=== PATIENT | male | born 1955 | race African-American/Black ===

== ENCOUNTER 2019-11-02 01:06 | Emergency (ER) | payer MEDICAID ==
[~2019-11-02] VITALS: Ht 182.9 cm; Wt 72.5 kg
[~2019-11-02 01:06] MED LIST: MIRT30TA3 PO; QUET100T4 PO; TRAZ-175 PO
[2019-11-02 01:10] VITALS: BP 127/81
--- NOTE | 2019-11-02 01:27 | NUR ---
assessment made. chart up for MD to see.
[2019-11-02] MEDS ORDERED: MORPHINE SULFATE 4 MG/ML, 1ML IVPush ONE (01:30)
[2019-11-02] MEDS ORDERED: SODIUM CHLORIDE FLUSH 10ML SYR IVF ONE (01:30)
[2019-11-02] MEDS ORDERED: CEFAZOLIN PMX 1GM/50ML 50 ML IV ONE (01:30)
[2019-11-02] MEDS ORDERED: ONDANSETRON 2MG/ML, 2ML IVPush ONE (01:30)
[2019-11-02] MEDS ORDERED: VANCOMYCIN PER PHARMACY MC PRN (01:30)
[2019-11-02] MEDS ORDERED: CEFAZOLIN 1,000 MG ONE (01:46)
[2019-11-02] MEDS ORDERED: ONDANSETRON 2MG/ML, 2ML ONE (01:46)
[2019-11-02] MEDS ORDERED: MORPHINE SULFATE 4 MG/ML, 1ML ONE (01:46)
[2019-11-02 01:51] LABS: BASOPHILS # (AUTO) 0.03 x10^3/uL (0-0.1); BASOPHILS % (AUTO) 0 % (0-1); EOSINOPHILS # (AUTO) 0.22 x10^3/uL (0-0.4); EOSINOPHILS % (AUTO) 3 % (1-7); LYMPHOCYTES # (AUTO) 1.83 x10^3/uL (1-3.4); LYMPHOCYTES % (AUTO) 24 % (22-44); MD NO; MEAN CORPUSCULAR HEMOGLOBIN 28.2 pg (27.5-34.5); MEAN CORPUSCULAR HGB CONC 32.7 g/dL (33.2-36.2); MEAN CORPUSCULAR VOLUME 86.2 fL (81-97); MEAN PLATELET VOLUME 6.8 fL (7.4-10.4); MONOCYTES # (AUTO) 0.63 x10^3/uL (0.2-0.8); MONOCYTES % (AUTO) 8 % (2-9); NEUTROPHILS # (AUTO) 5.01 x10^3/uL (1.8-6.8); NEUTROPHILS % (AUTO) 65 % (42-75); PLATELET COUNT 433 x10^3/uL (130-400); RED BLOOD COUNT 4.97 x10^6/uL (4.38-5.82); RED CELL DISTRIBUTION WIDTH 15.5 % (9.4-14.8)
[2019-11-02 01:59] LABS: ALBUMIN 3.1 g/dL (3.4-5.0); ANION GAP 7 mmol/L (5-15); CALCIUM 8.5 mg/dL (8.5-10.1); CHLORIDE 109 mmol/L (98-107); CREATININE 0.97 mg/dL (0.7-1.3)
[2019-11-02] MEDS ORDERED: VANCOMYCIN 1,400 MG in SODIUM CHLORIDE 0.9% 250 ML IV ONE (02:00)
[2019-11-02] MEDS ORDERED: CEFAZOLIN PMX 1GM/50ML 50 ML ONE (02:03)
== END 2019-11-02 04:16 | disposition home or self-care (01) ==
LOC: ED 02:40
DX: L03.115 Cellulitis of right lower limb (principal); M79.661 Pain in right lower leg; F17.200 Nicotine dependence, unspecified, uncomplicated; Z72.9 Problem related to lifestyle, unspecified
CPT/HCPCS: 36415; 73590; 80048; 82040; 85025; 96365; 96375; 99284; J0690; J2270; J2405; J3370; J7050

== ENCOUNTER 2019-11-08 17:33 | Emergency (ER) | payer MEDICAID ==
[~2019-11-08] VITALS: Ht 182.9 cm; Wt 74.3 kg
[2019-11-08 17:35] VITALS: BP 143/100
--- NOTE | 2019-11-08 18:41 | NUR ---
PATIENT STATES HE WAS SEEN ABOUT A WEEK AGO AND WAS DIAGNOSED WITH A STAPH INFECTION/CELLULITIS AND DISCHARGED. UNABLE TO FURNITURE ASSOCIATE ABX PRESCRIPTION. MULTIPLE CRUSTED LESIONS NOTED TO RIGHT CALF/FRIAS
[2019-11-08 19:24] LABS: BASOPHILS # (AUTO) 0.08 x10^3/uL (0-0.1); BASOPHILS % (AUTO) 1 % (0-1); EOSINOPHILS # (AUTO) 0.15 x10^3/uL (0-0.4); EOSINOPHILS % (AUTO) 2 % (1-7); LYMPHOCYTES # (AUTO) 1.91 x10^3/uL (1-3.4); LYMPHOCYTES % (AUTO) 30 % (22-44); MD NO; MEAN CORPUSCULAR HEMOGLOBIN 27.9 pg (27.5-34.5); MEAN CORPUSCULAR HGB CONC 32.3 g/dL (33.2-36.2); MEAN CORPUSCULAR VOLUME 86.4 fL (81-97); MEAN PLATELET VOLUME 6.2 fL (7.4-10.4); MONOCYTES # (AUTO) 0.66 x10^3/uL (0.2-0.8); MONOCYTES % (AUTO) 10 % (2-9); NEUTROPHILS # (AUTO) 3.58 x10^3/uL (1.8-6.8); NEUTROPHILS % (AUTO) 56 % (42-75); PLATELET COUNT 421 x10^3/uL (130-400); RED BLOOD COUNT 4.82 x10^6/uL (4.38-5.82); RED CELL DISTRIBUTION WIDTH 15.7 % (9.4-14.8)
[2019-11-08 19:35] LABS: ALBUMIN 3.1 g/dL (3.4-5.0); ANION GAP 3 mmol/L (5-15); CALCIUM 8.6 mg/dL (8.5-10.1); CHLORIDE 106 mmol/L (98-107); CREATININE 0.93 mg/dL (0.7-1.3)
[2019-11-08] MEDS ORDERED: CEPHALEXIN 500 MG CAPSULE PO ONE (20:30)
[2019-11-08] MEDS ORDERED: SULFAMETH./TRIMETHOPRIM DS 800MG/160MG TABLET PO ONE (20:30)
[2019-11-08] MEDS ORDERED: CEPHALEXIN 500 MG CAPSULE ONE (20:37)
[2019-11-08] MEDS ORDERED: SULFAMETH./TRIMETHOPRIM DS 800MG/160MG TABLET ONE (20:38)
--- NOTE | 2019-11-08 21:24 | NUR ---
UPON CLEANING ROOM, PATIENT HAD LEFT DISCHARGE PAPERWORK IN ROOM. LEFT AT DISCHARGE DESK IN CASE PATIENT COMES BACK FOR PRESCRIPTION SHEET.
== END 2019-11-08 21:09 | disposition home or self-care (01) ==
LOC: ED 20:31
DX: L03.115 Cellulitis of right lower limb (principal); E11.9 Type 2 diabetes mellitus without complications; F17.210 Nicotine dependence, cigarettes, uncomplicated
CPT/HCPCS: 36415; 80048; 82040; 85025; 99285; 99406

== ENCOUNTER 2019-11-22 02:23 | Emergency (ER) | payer MEDICAID ==
[~2019-11-22] VITALS: Ht 182.9 cm; Wt 73.3 kg
[2019-11-22] MEDS ORDERED: SULFAMETH./TRIMETHOPRIM DS 800MG/160MG TABLET PO ONE (03:00)
[2019-11-22] MEDS ORDERED: IBUPROFEN 200 MG TABLET PO ONE (03:00)
[2019-11-22] MEDS ORDERED: CEPHALEXIN 500 MG CAPSULE PO ONE (03:00)
[2019-11-22] MEDS ORDERED: CEPHALEXIN 500 MG CAPSULE ONE (03:03)
[2019-11-22] MEDS ORDERED: SULFAMETH./TRIMETHOPRIM DS 800MG/160MG TABLET ONE (03:03)
[2019-11-22] MEDS ORDERED: IBUPROFEN 600 MG TABLET ONE (03:03)
[2019-11-22 03:15] VITALS: BP 122/83
--- NOTE | 2019-11-22 03:15 | NUR ---
Pt provided with crutches and taxi voucher
== END 2019-11-22 03:21 | disposition home or self-care (01) ==
LOC: ED 03:02
DX: L03.115 Cellulitis of right lower limb (principal); E11.9 Type 2 diabetes mellitus without complications
CPT/HCPCS: 99284

== ENCOUNTER 2020-04-25 07:08 | Emergency (ER) | payer MEDICARE, MEDICAID ==
[~2020-04-25] VITALS: Ht 180.3 cm; Wt 75.2 kg
[2020-04-25] MEDS ORDERED: OMNIPAQUE 350 MG/ML, 100ML BOTTLE ONE (07:34)
[2020-04-25 07:43] LABS: BASOPHILS % (AUTO) 1 % (0-1); EOSINOPHILS % (AUTO) 1 % (1-7); LYMPHOCYTES % (AUTO) 19 % (22-44); MEAN CORPUSCULAR HEMOGLOBIN 28.6 pg (27.5-34.5); MEAN CORPUSCULAR HGB CONC 33.1 g/dL (33.2-36.2); MEAN PLATELET VOLUME 6.7 fL (7.4-10.4); MONOCYTES % (AUTO) 8 % (2-9); NEUTROPHILS % (AUTO) 71 % (42-75); PLATELET COUNT 310 x10^3/uL (130-400); RED BLOOD COUNT 5.05 x10^6/uL (4.38-5.82); RED CELL DISTRIBUTION WIDTH 14.4 % (9.4-14.8)
[2020-04-25 07:44] LABS: MD NO
[2020-04-25 07:55] LABS: TROPONIN I < 0.015 ng/mL (0.000-0.045)
[2020-04-25 08:20] LABS: INTERNATIONAL NORMALIZED RATIO 1.12 (0.93-1.1); PROTHROMBIN TIME 11.9 Seconds (9.6-11.5)
--- NOTE | 2020-04-25 08:21 | NUR ---
PT BIB EMS FOR R-SIDED ARM AND LEG WEAKNESS, R FACIAL DROOPING AND SLURRED SPEECH. PT WAS LAST KNOWN NORMAL AT 3AM REPORTED BY DAVID, PER EMS. EMS REPORTED THAT JESSIKAATE HEARD PT MOANING AT AROUND 630 THIS AM AND WENT TO CHECK ON HIM, AT WHICH TIME THEY NOTICED THE R-SIDED WEAKNESS AND TROUBLE SPEAKING, AND CALLED 911. PT WAS EXAMINED IMMEDIATELY BY DR. GONZALEZ AND TAKEN TO CT ON EMS GURNEY. CTs WERE PERFORMED AND PATIENT RETURNED TO TRAUMA 4. PT HAS HAD TROUBLE HANDLING SECRETIONS. SUCTIONED PATIENT MULTIPLE TIMES TO RETRIEVE SECRETIONS. PT HAS IMPAIRED GAG REFLEX. DR. GONZALEZ NOTIFIED. PATIENT WAS SEEN VIA TELEMEDICINE BY NEUROLOGIST, DR. ERIC, WHO STATES THAT PATIENT IS NOT A CANDIDATE FOR TPA DUE TO TIME FRAME OF BEING OUTSIDE THE TREATMENT WINDOW BASED ON LAST KNOWN NORMAL. PT IS RESTING. ASSISTED PATIENT WITH USING THE URINAL. PT IS CONTINANT OF URINE. WARM BLANKET PROVIDED. CHEST XRAY DONE. URINE COLLECTED AND SENT TO LAB.
[2020-04-25] MEDS ORDERED: ONDANSETRON 2MG/ML, 2ML IVPush ONE (08:30)
[2020-04-25] MEDS ORDERED: ONDANSETRON 2MG/ML, 2ML ONE (08:31)
[2020-04-25 08:38] LABS: AMPHETAMINE SCREEN, URINE Negative (Negative); BARBITURATE SCREEN, URINE Negative (Negative); BENZODIAZEPINE SCREEN, URINE Negative (Negative); CANNABINOID SCREEN, URINE Negative (Negative); COCAINE SCREEN, URINE Negative (Negative); METHADONE SCREEN, URINE Negative (Negative); OPIATE SCREEN, URINE Negative (Negative)
--- NOTE | 2020-04-25 08:39 | NUR ---
PT BECAME NAUSEATED AND BEGAN VOMITING. DR. GONZALEZ NOTIFIED. ANGELIA ORDERED AND GIVEN. INSTRUCTED PATIENT ON USE OF YANKAUER WAND FOR SELF-SUCTIONING TO HANDLE ORAL SECRETIONS AND PHLEGM, PATIENT HAS A THICK SPUTUM.
[2020-04-25] MEDS ORDERED: METF500T17 PO (08:54)
[2020-04-25] MEDS ORDERED: METF10007 PO (08:55)
--- NOTE | 2020-04-25 08:55 | NUR ---
ATTEMPTED TO CALL [facility] TO VERIFY HOME MEDS BUT THEY ARE CLOSED AT THIS TIME.
[2020-04-25] MEDS ORDERED: ACETAMINOPHEN 650 MG SUPP ONE (09:06)
[2020-04-25] MEDS ORDERED: ACETAMINOPHEN 650 MG SUPP PR ONE (09:30)
--- NOTE | 2020-04-25 09:43 | NUR ---
PT TO MRI WITH THIS RN ON MD PSYCHIATRY AT THIS TIME.
[2020-04-25] MEDS ORDERED: ASPIRIN 600 MG SUPP PR ONE (10:00)
--- NOTE | 2020-04-25 10:11 | NUR ---
PATIENT IS BACK FROM MRI AND TOLERATED WELL. PT RESTING WITH NO COMPLAINTS. PT REMAINS IN A NORMAL SINUS RHYTHM.
--- NOTE | 2020-04-25 10:22 | NUR ---
SPO2 DECREASED TO 86% AFTER PATIENT HAD FALLEN ASLEEP. OXYGEN APPLIED VIA NASAL CANNULA AT 1 LPM. SPO2=96% NOW.
[2020-04-25 10:40] VITALS: BP 156/87
--- NOTE | 2020-04-25 10:41 | NUR ---
DR. GONZALEZ AT BEDSIDE DISCUSSING TRANSFERRING HIM TO [facility] FOR PROCEDURE TO REPAIR ISCHEMIA. PT AGREES. PT RESTING WITH NO COMPLAINTS. VS UPDATED AND STABLE.
--- NOTE | 2020-04-25 10:55 | NUR ---
SBAR TELEPHONE HAND-OFF REPORT GIVEN TO DIRECTOR EXTERNAL COMMUNICATIONS LINSEY AT [facility].
--- NOTE | 2020-04-25 11:01 | NUR ---
RAPID COVID SWAB COLLECTED AND WALKED TO LAB. REQUESTED PLANT MAINTENANCE MANAGER TO RUN STAT PATIENT HAS A STROKE.
--- NOTE | 2020-04-25 11:29 | NUR ---
PT TO [facility] AT THIS TIME.
== END 2020-04-25 11:32 | disposition short-term general hospital (02) ==
LOC: ED 08:07
DX: I65.01 Occlusion and stenosis of right vertebral artery (principal); I63.9 Cerebral infarction, unspecified; E11.9 Type 2 diabetes mellitus without complications; R00.9 Unspecified abnormalities of heart beat; R53.1 Weakness; Z20.822 Contact with and (suspected) exposure to COVID-19
CPT/HCPCS: 36415; 70450; 70496; 70498; 70551; 71045; 80047; 80307; 80320; 84484; 85025; 85610; 85730; 87635; 93005; 96374; 99291; J2405; Q9967; G0480